=== PATIENT | male | born 1940 | race African-American/Black ===

== ENCOUNTER 2019-07-25 19:02 | Emergency (ER) | payer MEDICARE, OTHER ==
[~2019-07-25] VITALS: Ht 177.8 cm; Wt 81.8 kg
[2019-07-25 19:39] VITALS: BP 108/65
== END 2019-07-25 20:08 | disposition home or self-care (01) ==
LOC: EMS 19:04
DX: F10.229 Alcohol dependence with intoxication, unspecified (principal); I10 Essential (primary) hypertension; F17.210 Nicotine dependence, cigarettes, uncomplicated; W18.39XA Other fall on same level, initial encounter; Y93.89 Activity, other specified; Y92.89 Other specified places as the place of occurrence of the external cause; Y99.8 Other external cause status
CPT/HCPCS: 82948